=== PATIENT | female | born 1945 | race Caucasian/White ===

== ENCOUNTER 2017-10-19 17:08 | Emergency (ER) | payer OTHER, MEDICARE ==
--- NOTE | 2017-10-19 17:25 | ED SKIN/ALLERGY COMPLAINT ---
History of Present Illness General Chief Complaint: Skin Rash/ Abcess Stated Complaint: ?SHINGLES Source: patient Exam Limitations: no limitations Allergies Coded Allergies: No Known Allergies (05/03/16) PER SPR ORDER SHEET. -CG 05/03/16 Reconcile Medications Valacyclovir HCl (Valtrex) 1,000 MG TABLET 1 TAB PO TID SHINGLES Triage Nurses Notes Reviewed? 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 The rash started 3 days ago. It was preceded by burning pain in the area. She states that the rash is itchy and painful. This been no discharge no fevers no contacts with similar rash. Patient is supposed to get an IVIG infusion tomorrow. She is on chronic immunosuppression therapy due to her neurologic disease. She denies any headaches no change in mental status no other rashes. (Joni Carter) Vital Signs & Intake/Output Vital Signs & Intake/Output Vital Signs Date Time Temp Pulse Resp B/P B/P Pulse O2 O2 Flow FiO2 Mean Ox Delivery Rate 10/19 1728 98.2 88 18 165/99 98 Room Air (Luna FITCH,[facility]) Past History Travel History Traveled to [place] past 21 day No Medical History Any Pertinent Medical History? see below for history Surgical History Surgical History: non-contributory Family History Hx Contributory? No (Joni Carter) Review of Systems Review of Systems Constitutional: Reports: no symptoms. EENTM: Reports: no symptoms. Respiratory: Reports: no symptoms. Cardiovascular: Reports: no symptoms. GI: Reports: no symptoms. Genitourinary: Reports: no symptoms. Musculoskeletal: Reports: no symptoms. Skin: Reports: see HPI, rash. Neurological/Psychological: Reports: no symptoms. Hematologic/Endocrine: Reports: no symptoms. Immunologic/Allergic: Reports: no symptoms. All Other Systems: Reviewed and Negative (Joni Carter) Physical Exam Physical Exam General Appearance: well developed/nourished, no apparent distress, alert, awake Head: atraumatic, normal appearance Eyes: Bilateral: normal appearance, PERRL, EOMI. Ears, Nose, Throat: normal pharynx, normal ENT inspection, hearing grossly normal Neck: normal inspection, supple, full range of motion Respiratory: no respiratory distress Gastrointestinal: soft, non-tender Back: normal inspection, normal range of motion Extremities: normal inspection, normal range of motion, no edema Neurologic/Psych: no motor/sensory deficits, awake, alert, oriented x 3, normal gait, normal mood/affect Skin: intact, normal color, warm/dry, rash Skin Problem Location: right groin/right lateral hip area Skin Problem Character: erythema, vesicular, multiple erythematous vesicular lesions located near the right groin and right lateral hip. They do not cross the midline and there is no underlying erythema and no purulent discharge summary the lesions are crusted over Lymphatic: no adenopathy (Joni Carter) Progress Differential Diagnosis: abscess/cellulitis, allergic reaction, anaphylaxis, contact dermatitis, drug reaction, meningitis/sepsis, piyriasis rosea, shingles, urticaria Plan of Care: Patient is here with shingles. No evidence of meningitis or systemic disease. Patient is immunosuppressed due to her neurologic disease. She will be covered with Valtrex. Discussed the patient about contact precautions and return precautions. Benadryl ibuprofen as needed for symptomatic treatment. Keep the area clean and dry looking for secondary bacterial infection. Follow-up with the primary care doctor for recheck speak with neurologist before getting additional IVIG infusions case discussed with Dr. worley he agrees (Joni Carter) Departure Departure Disposition: HOME OR SELF CARE Condition: Stable Clinical Impression Primary Impression: Shingles rash Referrals: Enedelia FITCH,Dequan Cruz (PCP/Family) Additional Instructions: VALTREX FOR FULL COURSE. Tylenol or ibuprofen for pain. Speak with your neurologist before your next IVIG infusion. Shingles can be contagious avoid close contact with others especially the very young and very old, as well as immunocompromiseD PEOPLE. Monitor symptoms closely return with any concerns. Departure Forms: Customer Survey General Discharge Information Prescriptions: Current Visit Scripts Valacyclovir HCl (Valtrex) 1 TAB PO TID #30 TAB (Joni Carter) PA/[employer] DISPATCHER Co-Sign Statement Statement: ED Attending supervision documentation- [x] I saw and evaluated the patient. I have also reviewed all the pertinent lab results and diagnostic results. I agree with the findings and the plan of care as documented in the PA's/[employer]OW TR[employer] DISPATCHER's documentation. [] I have reviewed the ED Record and agree with the PA's/[employer]OW TR[employer] DISPATCHER's documentation. [] Additions or exceptions (if any) to the PAs/TOW TR[employer] DISPATCHER's note and plan are summarized below: [] 72-year-old female comes in with shingles rash. History of IVIG use, will contact her specialist.non toxic at this time. 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 (Luna FITCH,[facility])
[2017-10-19 17:28] VITALS: BP 165/99
[2017-10-19] MEDS ORDERED: VALTREX1000 MG PO (17:57)
== END 2017-10-19 18:00 ==
LOC: ERH 17:08
DX: B02.9 Zoster without complications (principal)